=== PATIENT | male | born 1960 | race Caucasian/White ===

== ENCOUNTER 2020-08-15 08:03 | Outpatient (CLI) | payer OTHER, MEDICARE, SELFPAY | END 2020-08-15 08:04 | disposition home or self-care (01) | LOC: ANHCOVIDVC 08:04 | PROVIDERS: PCP Family Medicine | DX: Z23 Encounter for immunization (principal) | CPT/HCPCS: 0001A; 91300 ==

== ENCOUNTER 2020-09-05 08:26 | Outpatient (CLI) | payer OTHER, MEDICARE, SELFPAY | END 2020-09-05 08:27 | LOC: ANHCOVIDVC 08:26 | PROVIDERS: PCP Family Medicine | DX: Z23 Encounter for immunization (principal) | CPT/HCPCS: 0002A; 91300 ==

== ENCOUNTER 2021-05-06 11:58 | Emergency (ER) | payer OTHER, MEDICARE, SELFPAY ==
[2021-05-06 12:09] VITALS: BP 102/68; PULSE 58; RESP 16; TEMP 37; O2SAT 98
--- NOTE | 2021-05-06 13:34 | ED.URI ---
HPI - URI/Sore Throat General Chief Complaint: Upper Respiratory Infection Stated Complaint: cough chills headache Time Seen by Provider: 05/06/21 13:34 Source: patient, RN notes reviewed and old records reviewed Mode of arrival: ambulatory Limitations: no limitations History of Present Illness HPI Narrative: 60 year old male who presents to [facility] care with complaints of cough, chills, body aches, intermittent headache and sore throat with some post nasal drainage since last night. Patient states that he has not had any known fevers, reports generalized body aches rates as 7/10 has been taking some Tylenol for his symptoms. He has had COVID and Flu vaccines,is due for his Booster today.Patient does take biologicals for his Crohn's colitis. MD elicited complaint: cough, sore throat, rhinorrhea and nasal congestion Pertinent past history: immunosuppression Related Data Home Medications Medication Instructions Recorded Confirmed amlodipine 2.5 mg PO DAILY 05/06/21 05/06/21 cholecalciferol (vitamin D3) 50 mcg PO DAILY 05/06/21 05/06/21 [Vitamin D3] folic acid 1 mg PO DAILY 05/06/21 05/06/21 hydrocodone-acetaminophen 1 tablet PO Q8H PRN 05/06/21 05/06/21 lisinopril 20 mg PO DAILY 05/06/21 05/06/21 methotrexate (PF) 25 mg SUBCUT WEEKLY 05/06/21 05/06/21 sildenafil 100 mg PO DAILY 05/06/21 05/06/21 sulfasalazine 1,000 mg PO BID 05/06/21 05/06/21 vedolizumab 300 mg IV MONTHLY 05/06/21 05/06/21 Allergies Allergy/AdvReac Type Severity Reaction Status Date / Time No Known Allergies Allergy Verified 05/06/21 12:19 Review of Systems Review of Systems: CONSTITUTIONAL: No known fever,positive for chills, or sweats. EYES: Denies visual changes, redness, or discharge. ENT: Positive rhinorrhea, congestion, sore throat, no otalgia. CARDIOVASCULAR: Denies chest pain, palpitations, or edema. RESPIRATORY: Positive cough no dyspnea. GASTROINTESTINAL: Denies abdominal pain, nausea, vomiting, or diarrhea. GENITOURINARY: Denies dysuria or hematuria. SKIN: Denies rash or itching. MUSCULOSKELETAL: Denies back pain, joint pain,positive for generalized body aches NEUROLOGIC: Positive for intermittent headache,no numbness, or weakness. PSYCHIATRIC: Denies anxiety or depression. All systems reviewed & are unremarkable except as noted in HPI and below PMFSH Past Medical History Medical History (Updated 05/07/21 @ 16:42 by Sherlyn Price NP) Colitis Crohn's disease Hypertension Surgical History Surgical History (Updated 05/07/21 @ 16:33 by Sherlyn Price NP) H/O elbow surgery bilateral H/O left knee surgery H/O Spinal surgery X3 History of colon surgery Multiple Social History Social History (Updated 05/06/21 @ 13:43 by Sherlyn Price NP) Tobacco type: smokeless tobacco Living arrangements: with family Gender identity (if verbalized by the patient): Male Comments At time of signature, agree with nursing past medical, surgical, social and family history. There is no relevant family history pertinent to the presenting complaint Exam Narrative: GENERAL: Well-appearing, well-nourished, and in no acute distress. HEAD: Normocephalic, atraumatic. EYES: PERRLA and EOMI. ENT: Nares red with clear rhinorrhea no epistaxis. Mucous membranes moist.TM's normal with good light reflex, throat red no lesions or exudates no tonsil enlargement,post nasal drainage noted. NECK: Supple.no lymphadenopathy CHEST: Clear to auscultation. No respiratory distress.cough non productive, SAO2 98% on room air HEART: Regular rate and rhythm. No murmur heard. Normal peripheral pulses. ABDOMEN: Soft, nontender, nondistended, normal active bowel sounds. EXTREMITIES: Normal range of motion. No edema. SKIN: Warm, dry, no rash. NEURO: No focal deficits. Alert and oriented x3. Course Course Level of Care: Express Care Visit Vital Signs Vital signs: Vital Signs Temperature 37.0 C 05/06/21 12:09 Pulse Rate 58 L 05/06/21 12:09 Respira
== END 2021-05-06 14:04 | disposition home or self-care (01) ==
PROVIDERS: Emergency Provider Registered Nurse; PCP Internal Medicine
DX: J06.9 Acute upper respiratory infection, unspecified (principal); Z20.822 Contact with and (suspected) exposure to COVID-19; F17.200 Nicotine dependence, unspecified, uncomplicated; K50.90 Crohn's disease, unspecified, without complications; I10 Essential (primary) hypertension
CPT/HCPCS: 87081; 87804; 87880; 99213; G0463